=== PATIENT | female | born 1945 | race Caucasian/White ===

== ENCOUNTER 2017-06-16 13:54 | Emergency (ER) | payer OTHER ==
[~2017-06-16] VITALS: Ht 152.4 cm; Wt 54.4 kg
--- NOTE | 2017-06-16 13:54 | NUR ---
[id number] FROM COURT HOUSE: MECHANICAL FALL. NO COMPLAINS OF PAIN. PT STATES MJULTIPLE FALLS X 1 WEEK. NAD NOTED. PT AAO X4, AMB WITH STEADY GAIT. RR EVEN AND UNLABORED. PT REPORTS MILD CP AT THIS TIME, MD AWARE. MD AT BEDSIDE FOR EVAL.
[2017-06-16] MEDS ORDERED: IV NS 0.9% 1,000 ML BAG IV ONE (14:30)
[2017-06-16 14:39] LABS: BASOPHILS # (AUTO) 0.1 /CMM (0.0-0.2); BASOPHILS % (AUTO) 1.4 % (0.0-2.0); EOSINOPHILS % (AUTO) 4.2 % (0.0-6.0); HEMATOCRIT 38 % (33-45); HEMOGLOBIN 13.4 g/dL (11.5-14.8); LYMPHOCYTES % (AUTO) 32.6 % (20.0-44.0); MEAN CORPUSCULAR HGB CONC 35 g/dl (31.0-36.0); MEAN CORPUSCULAR VOLUME 90 fL (82-100); MONOCYTES # (AUTO) 0.4 /CMM (0.1-1.30); MONOCYTES % (AUTO) 6.9 % (2.0-12.0); NEUTROPHILS # (AUTO) 3.4 /CMM (1.8-8.9); NEUTROPHILS % (AUTO) 54.9 % (43.0-81.0); PLATELET COUNT (AUTO) 167 /CMM (150-450); RDW COEFFICIENT OF VARIATION 12.4 (11.5-15.0); RED BLOOD CELL COUNT(AUTO) 4.25 MIL/uL (4.0-5.2); WHITE BLOOD COUNT (AUTO) 6.2 K/uL (4.3-11.0)
[2017-06-16 14:47] LABS: CALCIUM, SERUM 9.5 mg/dL (8.5-10.1); CARBON DIOXIDE 30 mmol/L (21-32); CHLORIDE 103 mmol/L (98-107); CREATININE 0.6 mg/dL (0.6-1.3); GLUCOSE 105 mg/dL (74-106); POTASSIUM 3.6 mmol/L (3.5-5.1); SODIUM SERUM 138 mmol/L (136-145); UREA NITROGEN, BLOOD 14 mg/dL (7-18)
[2017-06-16 14:53] LABS: ALANINE AMINOTRANSFERASE 42 U/L (12-78); ALBUMIN 3.8 g/dL (3.4-5.0); ALKALINE PHOSPHATASE 61 U/L (46-116); ASPARTATE AMINOTRANSFERASE 26 U/L (15-37); BILIRUBIN,DIRECT 0.1 mg/dL (0.0-0.2); BILIRUBIN,TOTAL 0.3 mg/dL (0.2-1.0); TOTAL PROTEIN, SERUM 7.2 g/dL (6.4-8.2)
[2017-06-16 14:55] LABS: TROPONIN I < 0.017 ng/mL (0.00-0.056)
--- NOTE | 2017-06-16 15:07 | NUR ---
CALLED [facility] AND INFORMED THEM OF THE PT BEING SEEN IN OUR ER.
--- NOTE | 2017-06-16 15:30 | NUR ---
CALLED [facility] SPOKE WITH BOLTER HELPER MARSHA, WAITING FOR A CALL BACK FROM RASTA SWEENEY.
--- NOTE | 2017-06-16 15:50 | NUR ---
[facility] CALLED WITH [facility]. PT WILL BE TRANSFERRED TO [facility] AND DR HOPE IS THE ACCEPTING MD. 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
[2017-06-16 16:00] VITALS: BP 158/79
--- NOTE | 2017-06-16 16:11 | NUR ---
REPORT GIVEN TO RASTA THAO RN FOR ROBERT
== END 2017-06-16 16:59 | disposition short-term general hospital (02) ==
LOC: ER 13:59
DX: R07.89 Other chest pain (principal); R53.1 Weakness; R42 Dizziness and giddiness; I10 Essential (primary) hypertension; E11.9 Type 2 diabetes mellitus without complications; E78.5 Hyperlipidemia, unspecified; Z88.2 Allergy status to sulfonamides; Z87.891 Personal history of nicotine dependence
CPT/HCPCS: 36415; 70450-TC; 71045-TC; 80048-TC; 80076-TC; 84484-TC; 85025-TC; 85730-TC; 87081-TC; A4606; J7030; Z7610